=== PATIENT | female | born 1975 | race Caucasian/White ===

== ENCOUNTER 2016-09-12 21:46 | Emergency (ER) | payer OTHER | END 2016-09-13 06:21 | disposition home or self-care (01) | LOC: ER1 21:46 | DX: L02.31 Cutaneous abscess of buttock (principal); L03.317 Cellulitis of buttock; F17.210 Nicotine dependence, cigarettes, uncomplicated | CPT/HCPCS: 10061; 87070; 87077; 87186; 87205; 99283 ==